=== PATIENT | female | born 1980 | race Caucasian/White ===

== ENCOUNTER 2019-11-13 06:54 | Inpatient (IN) | payer BC ==
[2019-11-13] MEDS ORDERED: Sodium Chloride 0.9% 10 ML Syringe FLUSH PRN ×2 (07:35→08:59)
[2019-11-13] MEDS ORDERED: Nalbuphine 10 MG/ML Syringe IVPUSH PRN (07:35)
[2019-11-13] MEDS ORDERED: Ondansetron 4 MG/2 ML SDV IVPUSH PRN (07:35)
[2019-11-13] MEDS ORDERED: Calcium Carbonate 500 MG Tab.Chew PO PRN (07:35)
[2019-11-13] MEDS: Lactated Ringers 1,000 ML IV SCH ×2 (08:02→09:41)
--- NOTE | 2019-11-13 08:32 | PCM.LDHP ---
L&D History of Present Illness - General Date of Service: 11/13/19 Admit Problem/Dx: Patient Status Order with Admit Dx/Problem 11/13/19 07:40 Patient Status [ADT] Routine Admission Diagnosis/Problem Admission Diagnosis/Problem Source of Information: Patient History Limitations: Reports: No Limitations - History of Present Illness Introduction:: 39 year old at 39w2 days her for induction of labor - Related Data Allergies/Adverse Reactions: Allergies Allergy/AdvReac Type Severity Reaction Status Date / Time No Known Allergies Allergy Verified 03/31/14 23:57 Home Medications: Home Meds Ferrous Sulfate [Slow Fe] 47.5 mg PO BID 04/01/14 [History] Pnv with Ca,No.71/Iron/Fa [ Vitamin Tablet] 1 each PO DAILY 04/01/14 [ History] Past Medical History - Past Health History Medical/Surgical History: Denies Medical/Surgical History Oncologic (Cancer) History: Reports: None - Past Surgical History Endocrine Surgical History: Reports: None Neurological Surgical History: Reports: None Social & Family History - Family History Family Medical History: Noncontributory - Tobacco Use Smoking Status *Q: Former Smoker Used Tobacco, but Quit: No Second Hand Smoke Exposure: No - Caffeine Use Caffeine Use: Reports: None - Recreational Drug Use Recreational Drug Use: No H&P Review of Systems - Review of Systems: Review Of Systems: See Below General: Reports: No Symptoms HEENT: Reports: No Symptoms Pulmonary: Reports: No Symptoms Cardiovascular: Reports: No Symptoms Gastrointestinal: Reports: No Symptoms Genitourinary: Reports: No Symptoms Musculoskeletal: Reports: No Symptoms Skin: Reports: No Symptoms Psychiatric: Reports: No Symptoms Neurological: Reports: No Symptoms Hematologic/Lymphatic: Reports: No Symptoms Immunologic: Reports: No Symptoms L&D Exam - Exam Exam: See Below - Vital Signs Vital Signs: Last Vital Signs Temp 37.0 C 11/13/19 07:15 Pulse 87 11/13/19 07:15 Resp 18 11/13/19 07:15 BP 110/75 11/13/19 07:15 Pulse Ox 99 11/13/19 07:15 Weight: 70.76 kg - OB Specific Contraction Intensity: Mild to Moderate Movement: Active Heart Tones: Present Heart Rate (FHR) Variability: Moderate (6-25 bmp) Presentation: Vertex Estimated Weight: 7# - Metcalf Score Metcalf Score Cervix Position: Posterior Metcalf Score Consistency: Soft Metcalf Score Effacement: 51-70% Metcalf Score Dilation: 3-4 cm Metcalf Score 's Station: -1 ,0 Metcalf Score Total: 8 - Exam General: Alert, Oriented HEENT: PERRLA, Conjunctiva Clear, EACs Clear, EOMI, Hearing Intact, Mucosa Moist & [place], Nares Patent, Normal Nasal Septum, Posterior Pharynx Clear, TMs Clear Neck: Supple, Trachea Midline Lungs: Clear to Auscultation, Normal Respiratory Effort Cardiovascular: Regular Rate, Regular Rhythm GI/Abdominal Exam: Normal Bowel Sounds, Soft, Non-Tender, No Organomegaly, No Distention, No Abnormal Bruit, No Mass, Pelvis Stable Rectal Exam: Normal Exam, Normal Rectal Tone Genitourinary: Normal external exam, Normal bimanual exam, Normal speculum exam Back Exam: Normal Inspection, Full Range of Motion Extremities: Normal Inspection, Normal Range of Motion, Non-Tender, No Pedal Edema, Normal Capillary Refill Skin: Warm, Dry, Intact Neurological: Cranial Nerves Intact, Reflexes Equal Bilateral Psychiatric: Alert, Normal Affect, Normal Mood - Patient Data Lab Results Last 24 hrs: Laboratory Results - last 24 hr 11/13/19 Range/Units 07:50 WBC 7.16 (3.98-10.04) K/mm3 RBC 3.81 L (3.98-5.22) M/mm3 Hgb 11.3 (11.2-15.7) gm/dl Hct 35.1 (34.1-44.9) % MCV 92.1 D (79.4-94.8) fl MCH 29.7 (25.6-32.2) pg MCHC 32.2 (32.2-35.5) g/dl RDW Std Deviation 47.9 H (36.4-46.3) fL Plt Count 231 (182-369) K/mm3 MPV 11.3 (9.4-12.3) fl Neut % (Auto) 69.3 (34.0-71.1) % Lymph % (Auto) 17.9 L (19.3-51.7) % [place] % (Auto) 11.2 (4.7-12.5) % Eos % (Auto) 1.0 (0.7-5.8) Baso % (Auto) 0.3 (0.1-1.2) % Neut # (Auto) 4.97 (1.56-6.13) K/mm3 Lymph # (Auto) 1.28 (1.18-3.74) K/mm3 [place] # (Auto) 0.80 H (0.24-0.36) K/mm3 Eos # (Auto) 0.07 (0.04-0.36) K/mm3 Baso # (Auto) 0.02 (0.01-0.08) K/mm3 Result Diagrams: 11/13/19 07:50 Problem List Initiated/Reviewed/Updated: Yes Orders Last 24hrs: Active Orders 24 hr Category Date Time Status Patient Status [ADT] Routine ADT 11/13/19 07:40 Active Activity as Tolerated [RC] PFP Care 11/13/19 07:39 Active Communication Order [RC] ASDIRECTED Care 11/13/19 07:39 Active Non Stress Test [RC] PER UNIT ROUTINE Care 11/13/19 07:39 Active Notify Provider [RC] PFP Care 11/13/19 07:39 Active Notify Provider [RC] PRN Care 11/13/19 07:39 Active Peripheral IV Care [RC] . DIRECTED Care 11/13/19 07:41 Active Vital Signs [RC] PER UNIT ROUTINE Care 11/13/19 07:39 Active Regular Diet [DIET] Diet 11/13/19 Breakfast Active RAPID PLASMA REAGIN,RPR [CHEM] Routine Lab 11/13/19 07:50 Received TYPE AND SCREEN [BBK] Stat Lab 11/13/19 07:50 Received Calcium Carbonate [Tums] Med 11/13/19 07:35 Active 1,000 mg PO Q2H PRN Lactated Ringers [Ringers, Lactated] 1,000 ml Med 11/13/19 07:45 Active IV ASDIRECTED Nalbuphine [Nubain] Med 11/13/19 07:35 Active 10 mg IVPUSH Q2H PRN Ondansetron [Zofran] Med 11/13/19 07:35 Active 4 mg IVPUSH Q4H PRN Sodium Chloride 0.9% [Saline Flush] Med 11/13/19 07:35 Active 10 ml FLUSH ASDIRECTED PRN Electronic Heart Tones Ext w TOCO [WOMSER] Oth 11/13/19 07:39 Ordered Routine Electronic Heart Tones Internal [WOMSER] Per Unit Oth 11/13/19 07:39 Ordered Routine Peripheral IV Insertion Adult [OM.PC] Routine Oth 11/13/19 07:39 Ordered Resuscitation Status Routine Resus Stat 11/13/19 07:35 Ordered Medication Orders Calcium Carbonate/Glycine (Tums) 1,000 mg PO Q2H PRN PRN Reason: Indigestion Lactated Ringer's (Ringers, Lactated) 1,000 mls @ 100 mls/hr IV ASDIRECTED DALIA Last Admin: 11/13/19 08:02 Dose: 100 mls/hr Nalbuphine HCl (Nubain) 10 mg IVPUSH Q2H PRN PRN Reason: Pain Ondansetron HCl (Zofran) 4 mg IVPUSH Q4H PRN PRN Reason: Nausea/Vomiting Sodium Chloride (Saline Flush) 10 ml FLUSH ASDIRECTED PRN PRN Reason: Keep Vein Open Assessment/Plan Comment:: AROM clear fluid. Patient planning epidural. Pitocin after epidural if inadequate cervical change
[2019-11-13] MEDS ORDERED: fentaNYL 100 MCG/2 ML SDV ONE (08:42)
[2019-11-13] MEDS ORDERED: Lidocaine 1%/Sod Bicarbonate in NS 8.4% 1 ML Syringe IDERM PRN (08:59)
[2019-11-13] MEDS ORDERED: Lactated Ringers 1,000 ML IV SCH (09:00)
[2019-11-13] MEDS ORDERED: ePHEDrine 50 MG/ML SDV IVPUSH PRN (09:26)
[2019-11-13] MEDS ORDERED: diphenhydrAMINE 50 MG/ML SDV IVPUSH PRN (09:26)
[2019-11-13] MEDS ORDERED: fentaNYL 100 MCG/2 ML SDV EPIDUR PRN (09:26)
[2019-11-13] MEDS ORDERED: Bupivacaine/fentaNYL/NS 100 ML Bag EPIDUR PRN (09:26)
--- NOTE | 2019-11-13 09:30 | PCM.PREANE ---
Preanesthetic Assessment - Procedure Proposed Procedure: Epidural - Anesthesia/Transfusion/Family Hx Anesthesia History: Prior Anesthesia Without Reaction Family History of Anesthesia Reaction: No Transfusion History: No Prior Transfusion(s) - Review of Systems General: Fatigue Pulmonary: No Symptoms Cardiovascular: No Symptoms Gastrointestinal: Abdominal Pain (labor) Neurological: Numbness (Fingers right hand) Other: Reports: None - Physical Assessment Vital Signs: Last Vital Signs Temp 37.0 C 11/13/19 07:15 Pulse 87 11/13/19 07:15 Resp 18 11/13/19 07:15 BP 110/75 11/13/19 07:15 Pulse Ox 99 11/13/19 07:15 Height: 1.93 m Weight: 70.76 kg ASA Class: 2 Mental Status: Alert & Oriented x3 Airway Class: Mallampati = 1 Dentition: Reports: Normal Dentition Thyro-Mental Finger Breadths: 3 Mouth Opening Finger Breadths: 3 ROM/Head Extension: Full Lungs: Clear to Auscultation, Normal Respiratory Effort Cardiovascular: Regular Rate, Regular Rhythm - Lab Values: Laboratory Last Values WBC 7.16 K/mm3 (3.98-10.04) 11/13/19 07:50 RBC 3.81 M/mm3 (3.98-5.22) L 11/13/19 07:50 Hgb 11.3 gm/dl (11.2-15.7) 11/13/19 07:50 Hct 35.1 % (34.1-44.9) 11/13/19 07:50 MCV 92.1 fl (79.4-94.8) D 11/13/19 07:50 MCH 29.7 pg (25.6-32.2) 11/13/19 07:50 MCHC 32.2 g/dl (32.2-35.5) 11/13/19 07:50 RDW Std Deviation 47.9 fL (36.4-46.3) H 11/13/19 07:50 Plt Count 231 K/mm3 (182-369) 11/13/19 07:50 MPV 11.3 fl (9.4-12.3) 11/13/19 07:50 Neut % (Auto) 69.3 % (34.0-71.1) 11/13/19 07:50 Lymph % (Auto) 17.9 % (19.3-51.7) L 11/13/19 07:50 [place] % (Auto) 11.2 % (4.7-12.5) 11/13/19 07:50 Eos % (Auto) 1.0 (0.7-5.8) 11/13/19 07:50 Baso % (Auto) 0.3 % (0.1-1.2) 11/13/19 07:50 Neut # (Auto) 4.97 K/mm3 (1.56-6.13) 11/13/19 07:50 Lymph # (Auto) 1.28 K/mm3 (1.18-3.74) 11/13/19 07:50 [place] # (Auto) 0.80 K/mm3 (0.24-0.36) H 11/13/19 07:50 Eos # (Auto) 0.07 K/mm3 (0.04-0.36) 11/13/19 07:50 Baso # (Auto) 0.02 K/mm3 (0.01-0.08) 11/13/19 07:50 Blood Type A POSITIVE 11/13/19 07:50 Gel Antibody Screen Negative 11/13/19 07:50 - Allergies Allergies/Adverse Reactions: Allergies Allergy/AdvReac Type Severity Reaction Status Date / Time No Known Allergies Allergy Verified 03/31/14 23:57 - Anesthesia Plan Pre-Op Medication Ordered: None - Acknowledgements Anesthesia Type Planned: Epidural Pt an Appropriate Candidate for the Planned Anesthesia: Yes Alternatives and Risks of Anesthesia Discussed w Pt/Guardian: Yes Pt/Guardian Understands and Agrees with Anesthesia Plan: Yes PreAnesthesia Questionnaire - Past Health History Medical/Surgical History: Denies Medical/Surgical History Gastrointestinal History: Reports: GERD Oncologic (Cancer) History: Reports: None - Past Surgical History Endocrine Surgical History: Reports: None Neurological Surgical History: Reports: None - SUBSTANCE USE Smoking Status *Q: Former Smoker Tobacco Use Within Last Twelve Months: No Second Hand Smoke Exposure: No Recreational Drug Use History: No - HOME MEDS Home Medications: Home Meds Ferrous Sulfate [Slow Fe] 47.5 mg PO BID 04/01/14 [History] Pnv with Ca,No.71/Iron/Fa [ Vitamin Tablet] 1 each PO DAILY 04/01/14 [ History] - CURRENT (IN HOUSE) MEDS Current Meds: Current Medications Calcium Carbonate/Glycine (Tums) 1,000 mg PO Q2H PRN PRN Reason: Indigestion Diphenhydramine HCl (Benadryl) 25 mg IVPUSH Q6H PRN PRN Reason: pruritis Ephedrine Sulfate (Ephedrine Sulfate) 5 mg IVPUSH ASDIRECTED PRN PRN Reason: Hypotension Fentanyl (Sublimaze) 100 mcg EPIDUR Q3H PRN PRN Reason: Pain Fentanyl/Bupivacaine HCl (Fentanyl/Bupivacaine/Ns 2 Mcg-0.125% 100 Ml) 100 ml EPIDUR ASDIRECTED PRN PRN Reason: Pain Lactated Ringer's (Ringers, Lactated) 1,000 mls @ 100 mls/hr IV ASDIRECTED [facility] Last Admin: 11/13/19 08:02 Dose: 100 mls/hr Lactated Ringer's (Ringers, Lactated) 1,000 mls @ 125 mls/hr IV ASDIRECTED [facility] Lidocaine/Sodium Bicarbonate (Buffered Lidocaine 1% In Ns 8.4%) 0.25 ml IDERM ONETIME PRN PRN Reason: Prior to IV Start Stop: 11/13/19 18:00 Nalbuphine HCl (Nubain) 10 mg IVPUSH Q2H PRN PRN Reason: Pain Ondansetron HCl (Zofran) 4 mg IVPUSH Q4H PRN PRN Reason: Nausea/Vomiting Sodium Chloride (Saline Flush) 10 ml FLUSH ASDIRECTED PRN PRN Reason: Keep Vein Open Sodium Chloride (Saline Flush) 10 ml FLUSH ASDIRECTED PRN PRN Reason: Keep Vein Open Discontinued Medications Fentanyl (Sublimaze) Confirm Administered Dose 100 mcg .ROUTE .K-MED ONE Stop: 11/13/19 08:43
[2019-11-13] MEDS ORDERED: Oxytocin/Lactated Ringers 20 UNIT/1,000 ML BAG ONE (10:40)
[2019-11-13] MEDS ORDERED: Oxytocin/Lactated Ringers 10 UNIT/1,000 ML BAG IV SCH (10:45)
[2019-11-13] MEDS ORDERED: Bupivacaine 0.25% 10 ML SDV ONE (11:00)
[2019-11-13] MEDS ORDERED: ePHEDrine Sulfate/0.9% NaCl/Pf 25 MG/5 ML SYRINGE IV ONE (11:00)
--- NOTE | 2019-11-13 13:58 | PCM.SN.2 ---
- Free Text/Narrative Note: Stage I - Patient presented for induction of labor. AROM clear fluid. Progressed to complete with overall reassuring heart tones. Stage II - of viable male, 1339, 8/9 APGARS. Head delivered in a controlled manner, body and shoulders atraumatically. Positive cry. To maternal abdomen. Stage III - of intact placenta. 3vc. No laceration. EBL 50. Pitocin given.
[2019-11-13] MEDS ORDERED: Docusate Sodium 100 MG Cap PO PRN (14:12)
[2019-11-13] MEDS ORDERED: Witch Hazel Medicated Pads 40/Jar TOP PRN (14:12)
[2019-11-13] MEDS: Ibuprofen 600 MG Tab PO PRN (18:32)
[2019-11-13] MEDS ORDERED: Acetaminophen 325 MG Tab PO PRN (18:33)
--- NOTE | 2019-11-14 08:42 | PCM48HPAN ---
Post Anesthesia Note - EVALUATION WITHIN 48HRS OF ANESTHETIC Vital Signs in Normal Range: Yes Patient Participated in Evaluation: Yes Respiratory Function Stable: Yes Airway Patent: Yes Cardiovascular Function Stable: Yes Hydration Status Stable: Yes Pain Control Satisfactory: Yes Nausea and Vomiting Control Satisfactory: Yes Mental Status Recovered: Yes Vital Signs: Last Vital Signs Temp 36.6 C 11/14/19 01:27 Pulse 89 11/14/19 01:27 Resp 14 11/14/19 01:27 BP 118/80 11/14/19 01:27 Pulse Ox 98 11/14/19 01:27
[2019-11-14 10:23] VITALS: BP 109/81; PULSE 77
[2019-11-14] MEDS: Ibuprofen 600 MG Tab PO PRN (11:29)
--- NOTE | 2019-11-14 13:51 | PCM.DCSUM1 ---
Discharge Summary - Hospital Course Diagnosis: Stroke: No - Discharge Data Discharge Date: 11/14/19 Discharge Disposition: Home, Self-Care 01 Condition: Good - Referral to Home Health Primary Care Physician: Donita Rubio MD - Discharge Plan *PRESCRIPTION DRUG MONITORING PROGRAM REVIEWED*: No *COPY OF PRESCRIPTION DRUG MONITORING REPORT IN PATIENT ENRIQUE: No Home Medications: Home Meds Ferrous Sulfate [Slow Fe] 47.5 mg PO BID 04/01/14 [History] Pnv with Ca,No.71/Iron/Fa [ Vitamin Tablet] 1 each PO DAILY 04/01/14 [History] Patient Handouts: and Self-Care, Care After Vaginal Delivery Referrals: Donita Rubio MD [Primary Care Provider] - - Discharge Summary/Plan Comment DC Time >30 min.: No - General Info Date of Service: 11/14/19 Functional Status: Reports: Pain Controlled - Review of Systems General: Reports: No Symptoms HEENT: Reports: No Symptoms Pulmonary: Reports: No Symptoms Cardiovascular: Reports: No Symptoms Gastrointestinal: Reports: No Symptoms Genitourinary: Reports: No Symptoms Musculoskeletal: Reports: No Symptoms Skin: Reports: No Symptoms Neurological: Reports: No Symptoms Psychiatric: Reports: No Symptoms - Patient Data Vitals - Most Recent: Last Vital Signs Temp 37.1 C 11/14/19 09:03 Pulse 77 11/14/19 09:03 Resp 14 11/14/19 09:03 BP 109/81 11/14/19 09:03 Pulse Ox 100 11/14/19 09:03 Weight - Most Recent: 70.76 kg I&O - Last 24 hours: Intake & Output 11/13/19 11/14/19 11/14/19 22:59 06:59 14:59 Intake Total 1520 Balance 1520 Lab Results - Last 24 hrs: Laboratory Results - last 24 hr 11/13/19 Range/Units 07:50 RPR Non-reactive (NONREACTIVE) Med Orders - Current: Current Medications Acetaminophen (Tylenol) 650 mg PO Q4H PRN PRN Reason: Pain Last Admin: 11/14/19 05:15 Dose: 650 mg Documented by: Docusate Sodium (Colace) 100 mg PO BID PRN PRN Reason: Constipation Ibuprofen (Motrin) 600 mg PO Q6H PRN PRN Reason: Mild pain or fever Last Admin: 11/14/19 11:29 Dose: 600 mg Documented by: Kota Engle ([facility]) 1 pad TOP ASDIRECTED PRN PRN Reason: Pain Discontinued Medications Bupivacaine HCl (Sensorcaine-Mpf 0.25%) 10 ml .ROUTE .STK-MED ONE Stop: 11/13/19 11:01 Calcium Carbonate/Glycine (Tums) 1,000 mg PO Q2H PRN PRN Reason: Indigestion Diphenhydramine HCl (Benadryl) 25 mg IVPUSH Q6H PRN PRN Reason: pruritis Ephedrine Sulfate (Ephedrine Sulfate) 5 mg IVPUSH ASDIRECTED PRN PRN Reason: Hypotension Ephedrine Sulfate (Ephedrine 25 Mg/5 Ml Syringe) 25 mg IV .STK-MED ONE Stop: 11/13/19 11:01 Fentanyl (Sublimaze) Confirm Administered Dose 100 mcg .ROUTE .ScanCafe-MED ONE Stop: 11/13/19 08:43 Last Admin: 11/13/19 10:32 Dose: Not Given Documented by: Fentanyl (Sublimaze) 100 mcg EPIDUR Q3H PRN PRN Reason: Pain Last Admin: 11/13/19 09:30 Dose: 100 mcg Documented by: Fentanyl/Bupivacaine HCl (Fentanyl/Bupivacaine/Ns 2 Mcg-0.125% 100 Ml) 100 ml EPIDUR ASDIRECTED PRN PRN Reason: Pain Last Admin: 11/13/19 09:32 Dose: 100 ml Documented by: Lactated Ringer's (Ringers, Lactated) 1,000 mls @ 100 mls/hr IV ASDIRECTED DALIA Last Admin: 11/13/19 09:41 Dose: 100 mls/hr Documented by: Lactated Ringer's (Ringers, Lactated) 1,000 mls @ 125 mls/hr IV ASDIRECTED DALIA Oxytocin/Lactated Ringer's (Pitocin In Lr 10 Units/1,000 Ml) 10 unit in 1,000 mls @ 12 mls/hr IV TITRATE DALIA; Protocol Last Titration: 11/13/19 12:25 Dose: 8 munits/min, 48 mls/hr Documented by: Oxytocin/Lactated Ringer's (Pitocin In Lr 20 Units/1,000 Ml) Confirm Administered Dose 20 unit in 1,000 mls @ as directed .ROUTE .STK-MED ONE Stop: 11/13/19 10:41 Last Admin: 11/13/19 11:13 Dose: Not Given Documented by: Lidocaine/Sodium Bicarbonate (Buffered Lidocaine 1% In Ns 8.4%) 0.25 ml IDERM ONETIME PRN PRN Reason: Prior to IV Start Stop: 11/13/19 18:00 Nalbuphine HCl (Nubain) 10 mg IVPUSH Q2H PRN PRN Reason: Pain Ondansetron HCl (Zofran) 4 mg IVPUSH Q4H PRN PRN Reason: Nausea/Vomiting Sodium Chloride (Saline Flush) 10 ml FLUSH ASDIRECTED PRN PRN Reason: Keep Vein Open Sodium Chloride (Saline Flush) 10 ml FLUSH ASDIRECTED PRN PRN Reason: Keep Vein Open
== END 2019-11-14 14:34 | disposition home or self-care (01) | DRG 560 ==
LOC: JD.OB 06:54 → OBSVTOIN 13:39 → JD.OB 13:39
PROVIDERS: ADMIT Obstetrics & Gynecology; ATTEND Obstetrics & Gynecology
PROC: 10E0XZZ Delivery of Products of Conception, External Approach (ICD-10-PCS; principal; 2019-11-13)
PROC: 10907ZC Drainage of Amniotic Fluid, Therapeutic from Products of Conception, Via Natural or Artificial Opening (ICD-10-PCS; 2019-11-13)
PROC: 3E0R3BZ Introduction of Anesthetic Agent into Spinal Canal, Percutaneous Approach (ICD-10-PCS; 2019-11-13)
DX: O80 Encounter for full-term uncomplicated delivery (principal); Z3A.38 38 weeks gestation of pregnancy; Z37.0 Single live birth; Z87.891 Personal history of nicotine dependence
CPT/HCPCS: 01967; 36415; 51702; 59025; 59409; 85025; 86592; 86850; 86900; 86901; A9270-GY; J0171; J2590; J3010; J3490; J7120